=== PATIENT | female | born 1975 | race Caucasian/White ===

== ENCOUNTER → 2016-09-26 | Outpatient (REF) | payer BC, MEDICAID ==
[~2016-09-26] MED LIST: IBUP600T26 PO; NO MEDICATIONS; VICO5TAB PO
[2016-09-26 17:05] LABS: ALBUMIN 3.5 GM/DL (3.2-5.2); ALBUMIN/GLOBULIN RATIO 1.13 (1.00-1.93); ALKALINE PHOSPHATASE 92 U/L (45-117); ALT/SGPT 16 U/L (12-78); ANION GAP 4 MEQ/L (8-16); AST/SGOT 15 U/L (15-37); BILIRUBIN,TOTAL 0.2 MG/DL (0.2-1.0); BLOOD UREA NITROGEN 7 MG/DL (7-18); CALCIUM LEVEL 8.5 MG/DL (8.5-10.1); CARBON DIOXIDE LEVEL 28 MEQ/L (21-32); CHLORIDE LEVEL 110 MEQ/L (98-107); CREATININE FOR GFR 0.58 MG/DL (0.55-1.02); FREE T4 0.97 NG/DL (0.76-1.46); GLOMERULAR FILTRATION RATE > 60.0 (>58); GLUCOSE, FASTING 95 MG/DL (70-105); MAGNESIUM LEVEL 2.3 MG/DL (1.8-2.4); POTASSIUM SERUM 4.1 MEQ/L (3.5-5.1); SODIUM LEVEL 142 MEQ/L (136-145); TOTAL PROTEIN 6.6 GM/DL (6.4-8.2)
[2016-09-26 17:53] LABS: BASO % 0.5 % (0.0-1.0); EOS # 0.1 K/mm3 (0.0-0.50); EOS % 1.5 % (0.0-3.0); LARGE UNSTAINED CELL # 0.1 K/mm3 (0.0-0.4); LARGE UNSTAINED CELL % 0.9 % (0.0-4.0); LYMPH # 2.3 K/mm3 (1.5-4.5); LYMPH % 27.3 % (24.0-44.0); MEAN CORPUSCULAR HEMOGLOBIN 30.1 pg (27.0-33.0); MEAN CORPUSCULAR HGB CONC 33.5 g/dl (32.0-36.5); MEAN CORPUSCULAR VOLUME 89.9 fl (80.0-96.0); MONO # 0.5 K/mm3 (0.0-0.8); MONO % 6.5 % (0.0-5.0); NEUTROPHILS # 5.2 K/mm3 (1.8-7.7); NEUTROPHILS % 63.3 % (36.0-66.0); PLATELET COUNT, AUTOMATED 222 k/mm3 (150-450); RED CELL DISTRIBUTION WIDTH 13.1 % (11.5-14.5); WHITE BLOOD COUNT 8.1 K/mm3 (4.0-10.0)
== END ==
LOC: M SFHCPLAZ 12:11
PROVIDERS: ATTEND Nurse Practitioner Family
DX: R00.2 Palpitations (principal)

== ENCOUNTER → 2016-10-10 | Outpatient (CLI) | payer BC, MEDICAID ==
--- NOTE | 2016-10-14 19:23 | HOLTMON ---
[facility] Test Date: 2016-10-10 Pat Name: MCKENNA EMMANUEL Department: Room: - Gender: [employer] Captain: HARMAN FRANCO : 1975 Requested By: NEYMAR DELGADO Order Number: [id number] Reading MD: Arturo Cardoza Interpretive Statements Heart rate variability was normal. There no significant PVC's and rare PAC's but no significant runs. No significant ST events or pauses. No atrial fibrillation was seen. Diary entries of palpitations and chest pain were not associated with any arrhythmias or ST deviations. Electronically Signed On 10-14-2016 19:22:44 EDT by Arturo Cardoza
== END ==
LOC: M EKG 14:02
PROVIDERS: ATTEND Nurse Practitioner Family
DX: R00.2 Palpitations (principal)

== ENCOUNTER → 2016-10-12 | Outpatient (CLI) | payer BC ==
--- NOTE | 2016-10-12 15:36 | REPMRS ---
Patient History The patient states she has not had a clinical breast exam in over a year. Family history of colorectal cancer in maternal aunt at age 50 or over, breast cancer in maternal grandmother at age 50 or over, and colorectal cancer in maternal uncle at age 50 or over. Digital Woman Screen Mammo: October 12, 2016 - Exam #: [id number] Bilateral CC and MLO view(s) were taken. Technologist: Rebecca Che, Technologist Prior study comparison: October 12, 2015, digital woman screen mammo performed at [facility]. FINDINGS: There are scattered fibroglandular densities. There has been no change in the appearance of the mammogram from the prior studies. There is a mild amount of residual fibroglandular tissue which is fairly symmetric. There is no interval development of dominant mass, architectural distortion, or clustered microcalcification suggestive of malignancy. ASSESSMENT: BI-RADS/ACR category 1 mammogram. Negative. Recommendation Routine screening mammogram in 1 year (for women over age 40). This mammogram was interpreted with the aid of an FDA-approved computer-aided dectection system. Electronically Signed By: Vitaliy Bolaños MD 10/12/16 [id number]
== END ==
LOC: M WHC 14:03
PROVIDERS: ATTEND Family Medicine
DX: Z12.31 Encounter for screening mammogram for malignant neoplasm of breast (principal)

== ENCOUNTER 2016-10-25 11:22 | Emergency (ER) | payer OTHER, BC ==
[~2016-10-25] VITALS: Ht 154.9 cm; Wt 70.3 kg
[2016-10-25] MEDS ORDERED: NIFE30TA7 PO (11:35)
[2016-10-25] MEDS ORDERED: SIMV5TAB4 PO (11:35)
[2016-10-25] MEDS ORDERED: PERCOCET 5MG/325MG TAB PO ONE (12:00)
[2016-10-25] MEDS ORDERED: PRED20TA PO (13:06)
[2016-10-25] MEDS ORDERED: ZANA4TAB PO (13:06)
[2016-10-25] MEDS ORDERED: MOBI7.5T10 PO (13:06)
[2016-10-25] MEDS ORDERED: PERC5TAB6 PO (13:06)
--- NOTE | 2016-10-25 13:09 | REP ---
Lumbar spine series: Five views. History: Trauma. Comparison study March 26, 2013. Findings: Lumbar vertebral body heights are preserved. Alignment is normal. There is degenerative narrowing of the L4-5 disc with discogenic spurring. Mild spurring is seen at L3-4. Pedicles and posterior elements are intact. There is no evidence of spondylolysis or spondylolisthesis. No fracture or collapse is seen. Psoas margins are symmetric. Sacrum and SI joints are intact. Impression: Mild degenerative disc disease at L3-4 and L4-5. Straightening. No fracture or other traumatic abnormality seen. Signed by Jaya Erwin MD 10/25/2016 01:47 P
[2016-10-25 13:22] VITALS: BP 168/90
== END 2016-10-25 13:34 | disposition home or self-care (01) ==
LOC: M ED 11:59
DX: M51.36 Other intervertebral disc degeneration, lumbar region (principal); F17.210 Nicotine dependence, cigarettes, uncomplicated

== ENCOUNTER 2016-11-08 10:43 | Outpatient (RCR) | payer OTHER ==
[~2016-11-08 10:43] MED LIST changes: +MOBI7.5T10 PO; +NIFE30TA7 PO; +PERC5TAB6 PO; +PRED20TA PO; +SIMV5TAB4 PO; +ZANA4TAB PO
== END 2016-11-14 ==
LOC: M PT 10:43
PROVIDERS: ATTEND Orthopaedic Surgery
DX: Z51.89 Encounter for other specified aftercare (principal); M47.816 Spondylosis without myelopathy or radiculopathy, lumbar region

== ENCOUNTER 2016-12-05 10:46 | Outpatient (RCR) | payer OTHER ==
[~2016-12-05 10:46] MED LIST changes: +MOBI4TAB PO; -MOBI7.5T10 PO; +PERC5TAB12 PO; -PERC5TAB6 PO
== END 2016-12-14 | disposition home or self-care (01) ==
LOC: M PT 10:46
PROVIDERS: ATTEND Orthopaedic Surgery
DX: Z51.89 Encounter for other specified aftercare (principal); M43.06 Spondylolysis, lumbar region

== ENCOUNTER 2017-01-13 12:09 | Emergency (ER) | payer BC, MEDICAID ==
[~2017-01-13] VITALS: Ht 162.6 cm; Wt 67.7 kg
[2017-01-13 12:10] VITALS: BP 135/77
[2017-01-13] MEDS ORDERED: DIFL150T PO (12:38)
== END 2017-01-13 12:54 | disposition home or self-care (01) ==
LOC: M ED 12:09
DX: L29.2 Pruritus vulvae (principal); Z72.0 Tobacco use

== ENCOUNTER → 2017-01-18 | Outpatient (REF) | payer BC ==
[~2017-01-18] MED LIST changes: +DIFL150T PO
== END ==
LOC: M SFHCWAGY 12:09
PROVIDERS: ATTEND Family Medicine
DX: Z11.3 Encounter for screening for infections with a predominantly sexual mode of transmission (principal)

== ENCOUNTER 2017-06-07 09:39 | Emergency (ER) | payer BC, MEDICAID ==
[~2017-06-07] VITALS: Ht 154.9 cm; Wt 66.8 kg
[2017-06-07] MEDS ORDERED: CLOPIDOGREL 300 MG TAB (PLAVIX) PO STA (10:30)
[2017-06-07] MEDS ORDERED: PLAV1TAB2 PO (10:34)
[2017-06-07] MEDS ORDERED: ASPI1TAB PO (10:35)
[2017-06-07] MEDS ORDERED: BACIOIN7 TOP (10:36)
[2017-06-07] MEDS ORDERED: ASPIRIN 81 MG CHEW TABLET PO ONE (10:45)
[2017-06-07 11:23] VITALS: BP 153/81
== END 2017-06-07 11:23 | disposition home or self-care (01) ==
LOC: M ED 09:39
DX: I73.00 Raynaud's syndrome without gangrene (principal); I99.8 Other disorder of circulatory system; I10 Essential (primary) hypertension; E78.5 Hyperlipidemia, unspecified; Z82.49 Family history of ischemic heart disease and other diseases of the circulatory system; Z79.01 Long term (current) use of anticoagulants; Z79.82 Long term (current) use of aspirin; F17.210 Nicotine dependence, cigarettes, uncomplicated

== ENCOUNTER → 2017-07-30 | Outpatient (CLI) | payer MEDICAID | LOC: M RAD 13:30 | DX: I70.211 Atherosclerosis of native arteries of extremities with intermittent claudication, right leg (principal); F17.218 Nicotine dependence, cigarettes, with other nicotine-induced disorders | CPT/HCPCS: 93923 ==

== ENCOUNTER → 2018-03-19 | Outpatient (REF) | payer OTHER ==
[2018-03-19 12:14] LABS: HEMATOCRIT 43.1 % (36.0-47.0); HEMOGLOBIN 14.2 g/dl (12.0-15.5); MEAN CORPUSCULAR HEMOGLOBIN 29.6 pg (27.0-33.0); MEAN CORPUSCULAR HGB CONC 32.9 g/dl (32.0-36.5); MEAN CORPUSCULAR VOLUME 89.8 fl (80.0-96.0); PLATELET COUNT, AUTOMATED 211 10^3/uL (150-450); RED CELL DISTRIBUTION WIDTH 12.6 % (11.5-14.5); WHITE BLOOD COUNT 8.7 10^3/uL (4.0-10.0)
[2018-03-19 13:28] LABS: ALBUMIN 3.5 GM/DL (3.2-5.2); ALBUMIN/GLOBULIN RATIO 1.09 (1.00-1.93); ALKALINE PHOSPHATASE 86 U/L (45-117); ALT/SGPT 17 U/L (12-78); ANION GAP 10 MEQ/L (8-16); AST/SGOT 16 U/L (7-37); BILIRUBIN,TOTAL 0.3 MG/DL (0.2-1.0); BLOOD UREA NITROGEN 12 MG/DL (7-18); CARBON DIOXIDE LEVEL 22 MEQ/L (21-32); CHLORIDE LEVEL 109 MEQ/L (98-107); CHOLESTEROL LEVEL 189 MG/DL (<200); CHOLESTEROL RISK RATIO 4.725 (<5); CREATININE FOR GFR 0.67 MG/DL (0.55-1.30); FREE T4 0.95 NG/DL (0.76-1.46); GLOMERULAR FILTRATION RATE > 60.0 (>58); GLUCOSE, FASTING 89 MG/DL (70-100); HDL CHOLESTEROL 40 MG/DL (>40); LDL CHOLESTEROL 123 MG/DL (<100); NON-HDL-C 149 MG/DL; POTASSIUM SERUM 4.1 MEQ/L (3.5-5.1); SODIUM LEVEL 141 MEQ/L (136-145); THYROID STIMULATING HORMONE 0.334 uIU/ML (0.358-3.740); TOTAL PROTEIN 6.7 GM/DL (6.4-8.2); TRIGLYCERIDES LEVEL 132 MG/DL (<150)
== END ==
LOC: M SFHCPLAZ 09:55
DX: R11.0 Nausea (principal); R53.83 Other fatigue; E78.5 Hyperlipidemia, unspecified; I73.00 Raynaud's syndrome without gangrene

== ENCOUNTER 2021-07-07 13:41 | Emergency (ER) | payer OTHER ==
[~2021-07-07] VITALS: Ht 156.2 cm; Wt 77.3 kg
[~2021-07-07 13:41] MED LIST changes: +ASPI81TA26 PO; +BACIOIN7 TOP; +NIFE1TAB52 PO; -NIFE30TA7 PO; +PLAV1TAB2 PO; +SIMV5TAB12 PO; -SIMV5TAB4 PO
[2021-07-07] MEDS ORDERED: KETOROLAC 60MG 2ML VIAL IM ONE (14:40)
[2021-07-07] MEDS ORDERED: PRED20TA PO (15:38)
[2021-07-07] MEDS ORDERED: KETO10TAB PO (15:38)
[2021-07-07 16:03] VITALS: BP 138/87
== END 2021-07-07 16:04 | disposition home or self-care (01) ==
LOC: M ED 13:41
DX: M54.50 Low back pain, unspecified (principal); I10 Essential (primary) hypertension; I73.00 Raynaud's syndrome without gangrene; E78.5 Hyperlipidemia, unspecified; F33.9 Major depressive disorder, recurrent, unspecified; F41.9 Anxiety disorder, unspecified; M54.30 Sciatica, unspecified side; F17.210 Nicotine dependence, cigarettes, uncomplicated
CPT/HCPCS: 72110; 96372; 99283; J1885

== ENCOUNTER → 2022-05-15 | Outpatient (CLI) | payer OTHER ==
[~2022-05-15] MED LIST changes: +CLOP75TA99 PO; +KETO10TAB PO; -PLAV1TAB2 PO
== END ==
LOC: M RAD 14:53
PROVIDERS: ATTEND Physician Assistant Medical
DX: M25.561 Pain in right knee (principal)

== ENCOUNTER → 2022-05-15 | Outpatient (CLI) | payer OTHER ==
[2022-05-15 15:24] LABS: BASO # 0.1 10^3/uL (0.0-0.2); BASO % 0.6 % (0.0-1.0); EOS # 0.2 10^3/uL (0.0-0.5); EOS % 2.1 % (0.0-3.0); HEMOGLOBIN 14.2 g/dl (12.0-15.5); LYMPH # 3.2 10^3/uL (1.5-5.0); LYMPH % 40.2 % (24.0-44.0); MEAN CORPUSCULAR VOLUME 87.9 fl (80.0-96.0); MONO # 0.5 10^3/uL (0.0-0.8); NEUTROPHILS # 4.1 10^3/uL (1.5-8.5); NEUTROPHILS % 50.8 % (36.0-66.0); PLATELET COUNT, AUTOMATED 239 10^3/uL (150-450); RED BLOOD COUNT 4.89 10^6/uL (4.00-5.40)
[2022-05-15 16:12] LABS: CHLORIDE LEVEL 109 MMOL/L (98-107); SODIUM LEVEL 142 MMOL/L (136-145)
[2022-05-15 16:13] LABS: ALBUMIN 3.8 G/DL (3.2-5.2); CARBON DIOXIDE LEVEL 24 MMOL/L (20-31)
[2022-05-15 16:17] LABS: TRIGLYCERIDES LEVEL 86 MG/DL (<150)
[2022-05-15 16:18] LABS: BLOOD UREA NITROGEN 11 MG/DL (9-23); CALCIUM LEVEL 8.9 MG/DL (8.5-10.1); GLUCOSE, FASTING 90 MG/DL (60-100)
[2022-05-15 16:19] LABS: FREE T4 1.11 NG/DL (0.89-1.76)
[2022-05-15 16:20] LABS: CHOLESTEROL LEVEL 221 MG/DL (<200); CHOLESTEROL RISK RATIO 4.13 (<5); CREATININE FOR GFR 0.56 MG/DL (0.55-1.30); GLOMERULAR FILTRATION RATE > 60.0 (>58); HDL CHOLESTEROL 53.4 MG/DL (>40); LDL CHOLESTEROL 150.4 MG/DL (<100); NON-HDL-C 168 MG/DL; PHOSPHORUS LEVEL 2.7 MG/DL (2.5-4.9)
[2022-05-15 16:22] LABS: THYROID STIMULATING HORMONE 0.315 uIU/ML (0.55-4.78)
[2022-05-15 16:23] LABS: POTASSIUM SERUM 3.8 MMOL/L (3.5-5.1)
== END ==
LOC: M LAB 14:49
PROVIDERS: ATTEND Physician Assistant
DX: I10 Essential (primary) hypertension (principal); E78.5 Hyperlipidemia, unspecified; E04.1 Nontoxic single thyroid nodule

== ENCOUNTER 2024-05-27 06:56 | Emergency (ER) | payer OTHER ==
[~2024-05-27] VITALS: Ht 154.9 cm; Wt 74.2 kg
[2024-05-27] MEDS: ACETAMINOPHEN 500 MG TAB PO ONE (10:04)
[2024-05-27 11:17] VITALS: BP 152/98; TEMP 98; O2SAT 94
== END 2024-05-27 11:19 | disposition home or self-care (01) ==
LOC: M ED 06:56
DX: J09.X2 Influenza due to identified novel influenza A virus with other respiratory manifestations (principal); I10 Essential (primary) hypertension; F17.210 Nicotine dependence, cigarettes, uncomplicated; F12.10 Cannabis abuse, uncomplicated